=== PATIENT | female | born 1940 ===

== ENCOUNTER 2017-07-09 13:35 | Emergency (ER) | payer MEDICARE, MEDICAID ==
[2017-07-09 13:41] VITALS: BMI 25.8
[2017-07-09] MEDS ORDERED: Morphine 4 mg/ml ISec IVP STA ×2 (13:42→15:13)
--- NOTE | 2017-07-09 13:44 | ED PDOC ---
Arrival/HPI - General Time Seen by Provider: 07/09/17 13:36 Historian: Patient - History of Present Illness Narrative History of Present Illness (Text): 07/09/17 13:44 A 77 year old female, with no significant past medical history, presents to the emergency department complaining of severe right-side abdominal pain. Patient reports having eaten steak last night and believes it may be gas. Patient began also experiencing dry heaves. Patient's son called 911. Patient has no other complaints at this time. No PMD Past Medical History - Provider Review Nursing Documentation Reviewed: Yes Family/Social History - Physician Review Nursing Documentation Reviewed: Yes Family/Social History: No Known Family HX Allergies/Home Meds Allergies/Adverse Reactions: Allergies No Known Allergies Allergy (Verified 07/09/17 13:41) Home Medications: Home Meds Medication Instructions Recorded Confirmed Dicyclomine [Bentyl] 20 mg PO TID 07/09/17 07/09/17 Linaclotide [Linzess] 1 tab PO DAILY 07/09/17 07/09/17 Oxybutynin [Oxybutynin Chloride] 5 mg PO BID 07/09/17 07/09/17 Simethicone [Gas-X Extra Strength] 125 mg PO DAILY PRN 07/09/17 07/09/17 traMADol [Ultram] 50 mg BID 07/09/17 07/09/17 Review of Systems - Physician Review All systems were reviewed & negative as marked: Yes - Review of Systems Constitutional: absent: Fevers, Night Sweats Respiratory: absent: SOB Cardiovascular: absent: Chest Pain, Palpitations Gastrointestinal: Abdominal Pain (right-side). absent: Diarrhea, Nausea, Vomiting (dry heaves) Physical Exam Vital Signs Temp Pulse Resp BP Pulse Ox 07/09/17 19:40 73 18 119/61 100 07/09/17 19:07 98 F 75 19 126/71 97 07/09/17 15:07 98 F 85 19 99 - Systems Exam Head: Present: Atraumatic, Normocephalic Pupils: Present: PERRL Extroacular Muscles: Present: EOMI Conjunctiva: Present: Normal Mouth: Present: Moist Mucous Membranes Neck: Present: Normal Range of Motion Respiratory/Chest: Present: Clear to Auscultation, Good Air Exchange. No: Respiratory Distress, Accessory Muscle Use Cardiovascular: Present: Regular Rate and Rhythm, Normal S1, S2. No: Murmurs Abdomen: No: Tenderness, Distention, Peritoneal Signs Back: Present: Normal Inspection Upper Extremity: Present: Normal Inspection. No: Cyanosis, Edema Lower Extremity: Present: Normal Inspection. No: Edema Neurological: Present: GCS=15, CN II-XII Intact, Speech Normal Skin: Present: Warm, Dry, Normal Color. No: Rashes Psychiatric: Present: Alert, Oriented x 3, Normal Insight, Normal Concentration Medical Decision Making ED Course and Treatment: 07/09/17 13:46 Impression: 77 year old female with right-side abdominal pain. Physical exam is unremarkable. Plan: -- Abdominal Ultrasound -- Abd/Pelvis CT -- Chest X-ray -- Labs -- Venous Blood Gas -- Toradol -- Morphine -- Zofran -- Blood Culture -- Urine Culture -- Urinalysis -- Reassess and disposition Progress Notes: 07/09/2017 15:00 Abdominal Ultrasound IMPRESSION: Increased hepatic echotexture suggesting fatty infiltration however other infiltrative hepatocellular disease process not excluded. No evidence of cholelithiasis. Small cyst lower pole left kidney. Dictator: Reid Taylor DO EKG: Ordered, reviewed, and independently interpreted the EKG. Rate : 64 BPM Rhythm : NSR Interpretation : No ST-segment elevations or depressions, no T-wave inversions, normal intervals. Comparison : No previous EKG for comparison. 07/09/2017 15:45 Chest X-ray IMPRESSION: Minor bibasilar atelectasis. Dictator: Reid Taylor DO 07/09/2017 19:27 Abd/Pelvis CT FINDINGS: Lung bases: Dependent atelectatic change is identified at the lung bases posteriorly. Mediastinum: There is a small hiatal hernia. ABDOMEN: Liver: There is mild hypodense fatty infiltration of the liver. No mass visualized. Gallbladder and bile ducts: No calcified stones. No ductal dilation. Pancreas: Normal contour, without acute peripancreatic stranding. Spleen: No splenomegaly. Adrenals: No mass. Kidneys and ureters: Hypodense probably parapelvic cysts are identified within the left kidney. One of the larger cysts measures 1.8 x 1.7 x 1.7 cm. Calyceal dilatation cannot be stated. There is fullness of the right renal collecting system. Stomach and bowel: Colnic diverticula are identified, without acute inflammatory stranding of the adjacent mesentery. There is significant fecal material within the colon. PELVIS: Appendix: The appendix is not visualized. Bladder: No mass. Reproductive: Unremarkable as visualized. ABDOMEN and PELVIS: Intraperitoneal space: No free air. Bones/joints: Hypertrophic degenerative changes are noted within the spine. Vasculature: There is atherosclerotic calcification of the abdominal aorta. No abdominal aneurysm. Lymph nodes: No enlarged lymph nodes. IMPRESSION: 1. There is mild hypodense fatty infiltration of the liver. 2. Hypodense probable parapelvic cysts are identified within the left kidney. Calyceal dilatation cannot be stated. There is fullness of the right renal collecting system. 3. Diverticulosis. 4. Incidental/non-acute findings are described above. Dictator: El Champion MD - Lab Interpretations Lab Results: 07/09/17 14:00 07/09/17 14:00 Lab Results 07/09/17 19:15: pO2 38, VBG pH 7.33, VBG pCO2 53.0, VBG HCO3 27.9, VBG Total CO2 29.5 H, VBG O2 Sat (Calc) 73.5 H, VBG Base Excess 1.0, VBG Potassium 3.9, Sodium 137.0, Chloride 106.0, Glucose 85, Lactate 0.7, FiO2 21.0, Venous Blood Potassium 3.9 07/09/17 15:16: Urine Color Yellow, Urine Appearance Clear, Urine pH 7.0, Ur Specific [place] <= 1.005, Urine Protein Negative, Urine Glucose (UA) Negative, Urine Ketones Negative, Urine Blood Negative, Urine Nitrate Negative, Urine Bilirubin Negative, Urine Urobilinogen 0.2, Ur Leukocyte Esterase Negative 07/09/17 14:00: Sodium 139, Chloride 103, Potassium 3.8, Carbon Dioxide 22, Anion Gap 18, BUN 16, Creatinine 0.9, Est GFR ( Amer) > 60, Est GFR (Non- Af Amer) > 60, Random Glucose 87, Calcium 9.5, Total Bilirubin 0.7, AST 26, ALT 26, Alkaline Phosphatase 58, Lactate Dehydrogenase 536, Total Creatine Kinase 66 , Troponin I < 0.01, Total Protein 7.5, Albumin 4.5, Globulin 3.1, Albumin/ Globulin Ratio 1.5, Lipase 147 07/09/17 14:00: pO2 53, VBG pH 7.48 H, VBG pCO2 33.0 L, VBG HCO3 24.6, VBG Total CO2 25.6, VBG O2 Sat (Calc) 93.6 H, VBG Base Excess 1.6, VBG Potassium 3.7 , Sodium 137.0, Chloride 104.0, Glucose 91, Lactate 2.0, FiO2 21.0, Venous Blood Potassium 3.7 07/09/17 14:00: PT 11.2, INR 0.98 07/09/17 14:00: WBC 9.0, RBC 4.54, Hgb 13.7, Hct 39.9, MCV 87.9, MCH 30.2, MCHC 34.3, RDW 13.5, Plt Count 162, MPV 12.2 H, Gran % 62.4, Lymph % (Auto) 28.3, Posey % (Auto) 7.3 H, Eos % (Auto) 1.6, Baso % (Auto) 0.4, Gran # 5.59, Lymph # ( Auto) 2.5, Posey # (Auto) 0.7 H, Eos # (Auto) 0.1, Baso # (Auto) 0.04 I have reviewed the lab results: Yes - RAD Interpretation Radiology Orders: 07/09/17 13:42 CHEST PORTABLE [RAD] Stat ABDOMEN COMPLETE [US] Stat 07/09/17 15:13 ABD PELVIS PO & IV CONTRAST [CT] Stat - Medication Orders Current Medication Orders: Discontinued Medications Sodium Chloride (Sodium Chloride 0.9%) 1,000 mls @ 999 mls/hr IV .Q1H1M STA Stop: 07/09/17 14:45 Last Admin: 07/09/17 14:00 Dose: 999 mls/hr eMAR Start Stop Document 07/09/17 14:00 GMI (Rec: 07/09/17 14:00 GMI [facility] [id number]) Intravenous Solution Start Date 07/09/17 Start Time 14:00 End Date 07/09/17 End time 19:11 Total Infusion Time 311 Ketorolac Tromethamine (Toradol) 30 mg IVP STAT STA Stop: 07/09/17 13:43 Last Admin: 07/09/17 14:01 Dose: 30 mg MAR Pain Assessment Document 07/09/17 14:01 GMI (Rec: 07/09/17 14:02 I [id number][facility] Pain Reassessment Is this a pain reassessment? Yes Sleep Is patient sleeping during reassessment? No Presence of Pain Presence of Pain Yes Location Upper or Lower Upper Description Description Constant Intensity of Pain at present 10 Pain Behavior Moaning Crying Irritability Alleviating Factors Position Change IVP Administration Document 07/09/17 14:01 GMI (Rec: 07/09/17 14:02 [id number] Charges for Administration # of IVP Administrations 1 Re-Assess: [facility] Pain Assessment Document 07/09/17 15:01 GMI (Rec: 07/09/17 15:33 I [id number] Pain Reassessment Is this a pain reassessment? Yes Sleep Is patient sleeping during reassessment? No Presence of Pain Presence of Pain Yes Morphine Sulfate (Morphine) 4 mg IVP STAT STA Stop: 07/09/17 13:43 Last Admin: 07/09/17 14:02 Dose: 4 mg [facility] Pain Assessment Document 07/09/17 14:02 GMI (Rec: 07/09/17 14:[id number] Pain Reassessment Is this a pain reassessment? Yes Sleep Is patient sleeping during reassessment? No Presence of Pain Presence of Pain Yes Location Upper or Lower Upper Pain Location Body Site Abdomen Description Pain Behavior Moaning Irritability IVP Administration Document 07/09/17 14:02 GMI (Rec: 07/09/17 14:06 [id number] Charges for Administration # of IVP Administrations 1 Re-Assess: [facility] Pain Assessment Document 07/09/17 15:02 GMI (Rec: 07/09/17 15:33 I [id number]) Pain Reassessment Is this a pain reassessment? Yes Sleep Is patient sleeping during reassessment? No Presence of Pain Presence of Pain Yes Pain Scale Used Pain Scale Used Numeric Location Upper or Lower Upper Pain Location Body Site Abdomen Description Description Intermittent Intensity of Pain at present 5 Pain Behavior Moaning Irritability Alleviating Factors Distraction Morphine Sulfate (Morphine) 4 mg IVP STAT STA Stop: 07/09/17 15:14 Last Admin: 07/09/17 15:35 Dose: 4 mg [facility] Pain Assessment Document 07/09/17 15:35 GMI (Rec: 07/09/17 15:36 GMI [facility] [id number]) Pain Reassessment Is this a pain reassessment? Yes Sleep Is patient sleeping during reassessment? No Presence of Pain Presence of Pain Yes Description Intensity of Pain at present 5 Pain Behavior Moaning Alleviating Factors Position Change IVP Administration Document 07/09/17 15:35 GMI (Rec: 07/09/17 15:36 GMI [facility] [id number]) Charges for Administration # of IVP Administrations 1 Re-Assess: [facility] Pain Assessment Document 07/09/17 16:35 GMI (Rec: 07/09/17 19:04 GMI [facility] [id number]) Pain Reassessment Is this a pain reassessment? Yes Sleep Is patient sleeping during reassessment? No Presence of Pain Presence of Pain No Ondansetron HCl (Zofran Inj) 8 mg IVP STAT STA Stop: 07/09/17 13:43 Last Admin: 07/09/17 14:00 Dose: Ondansetron HCl (Zofran Inj) 4 mg IVP STAT STA Stop: 07/09/17 15:14 Last Admin: 07/09/17 15:35 Dose: 4 mg IVP Administration Document 07/09/17 15:35 GMI (Rec: 07/09/17 15:35 GMI [facility] [id number]) Charges for Administration # of IVP Administrations 1 - Scribe Statement The provider has reviewed the documentation as recorded by the Nunu Castro Provider Scribe Attestation: All medical record entries made by the Scribvannessa were at my direction and personally dictated by me. I have reviewed the chart and agree that the record accurately reflects my personal performance of the history, physical exam, medical decision making, and the department course for this patient. I have also personally directed, reviewed, and agree with the discharge instructions and disposition. Disposition/Present on Arrival - Present on Arrival Any Indicators Present on Arrival: No History of DVT/PE: No Urinary Catheter: No History of Decub. Ulcer: No - Disposition Have Diagnosis and Disposition been Completed?: No Diagnosis: Abdominal pain, Nausea & vomiting Disposition: HOME/ ROUTINE Disposition Time: 19:34 Patient Plan: Discharge Patient Problems: Current Active Problems Problem Status Onset Abdominal pain Acute Nausea & vomiting Acute Condition: GOOD Discharge Instructions (ExitCare): Acute Abdomen (Belly Pain), Adult (DC), Nausea and Vomiting, Adult (DC) Additional Instructions: Mrs Fung - Thanks for allowing us to care for you tonight. I could find nothing serious wrong that you were having so much pain. You may be right that it is gas. Follow up with your doctor on Monday. Return to us if worse. Zofran ODT is for nausea and/or vomiting..... Simethicone is for gas...... Best- Dr. Pranay MILIAN DIET ONLY til you see your doctor. Prescriptions: Ondansetron ODT [Zofran ODT] 8 mg PO TID #30 odt Simethicone 180 mg PO BID #20 sgl
[2017-07-09] MEDS ORDERED: Sodium Chloride 0.9% 1,000 ML IV STA (13:45)
[2017-07-09 14:14] LABS: BASO # 0.04 K/mm3 (0.0-2.0); BASO % 0.4 % (0.0-3.0); EOS # 0.1 (0.0-0.7); EOS % 1.6 % (1.5-5.0); GRAN # 5.59 (1.4-6.5); GRAN % 62.4 % (50.0-68.0); HEMOGLOBIN 13.7 g/dL (12.0-16.0); LYMPH # 2.5 (1.2-3.4); LYMPH % 28.3 % (22.0-35.0); MEAN CELL VOLUME 87.9 fl (80.0-105.0); MEAN CORPUSCULAR HEMOGLOBIN 30.2 pg (25.0-35.0); MEAN CORPUSCULAR HGB CONC 34.3 g/dl (31.0-37.0); MEAN PLATELET VOLUME 12.2 fl (7.0-11.0); MONO # 0.7 (0.1-0.6); MONO % 7.3 % (1.0-6.0); RBC 4.54 10^6/uL (3.5-6.1); RED CELL DISTRIBUTION WIDTH 13.5 % (11.5-14.5)
[2017-07-09 14:20] LABS: INR 0.98 (0.93-1.08); PROTHROMBIN TIME 11.2 SECONDS (9.4-12.5)
[2017-07-09 14:25] LABS: VENOUS BLOOD GAS BASE EXCESS 1.6 mmol/L (0.0-2.0); VENOUS BLOOD GAS PO2 53 mm/Hg (30-55); VENOUS BLOOD PH 7.48 (7.32-7.43)
[2017-07-09 14:35] LABS: ALB/GLOB RATIO 1.5 (1.1-1.8); ALBUMIN 4.5 g/dL (3.0-4.8); ALT/SGPT 26 U/L (7-56); AST/SGOT 26 U/L (14-36); BLOOD UREA NITROGEN 16 mg/dL (7-21); CALCIUM 9.5 mg/dL (8.4-10.5); GFR AFRICAN-AMERICAN > 60; GFR NON-AFRICAN AMERICAN > 60; LIPASE 147 U/L (23-300)
[2017-07-09 14:56] LABS: TROPONIN I < 0.01 ng/mL
--- NOTE | 2017-07-09 15:01 | US ---
HISTORY: Biliary Colic COMPARISON: None. TECHNIQUE: Sonographic evaluation of the abdomen. FINDINGS: LIVER: Measures 13.6 cm. Smooth contour though increased echotexture consistent with fatty infiltration however other infiltrative hepatocellular disease process not excluded. No obvious hepatic masses or collections seen on images presented. No gross intrahepatic biliary ductal dilatation. GALLBLADDER: Unremarkable. No gallstones. No pericholecystic fluid collections or sonographic Ulrich sign. COMMON BILE DUCT: Measures 3.9 mm. No stones. No dilatation. PANCREAS: Unremarkable as visualized. No mass. No ductal dilatation. RIGHT KIDNEY: Measures 9.1 x 3.6 x 4.7cm. Normal echogenicity. No calculus, mass, or hydronephrosis. LEFT KIDNEY: Measures 9.4 x 4.4 x 5.1cm. Normal echogenicity. No calculus, mass, or hydronephrosis. Small cyst lower pole left kidney measuring 1.8 cm in greatest dimension. SPLEEN: Normal in size and contour. No mass. AORTA: No aneurysmal dilatation. IVC: Unremarkable. OTHER FINDINGS: None. IMPRESSION: Increased hepatic echotexture suggesting fatty infiltration however other infiltrative hepatocellular disease process not excluded. No evidence of cholelithiasis. Small cyst lower pole left kidney.
[2017-07-09 15:08] VITALS: TEMP 98
[2017-07-09 15:36] LABS: URINE APPEARANCE CLEAR (CLEAR); URINE BILIRUBIN NEGATIVE (NEGATIVE); URINE BLOOD NEGATIVE (NEGATIVE); URINE COLOR YELLOW (YELLOW); URINE GLUCOSE (UA) NEGATIVE (NEGATIVE); URINE LEUKOCYTE ESTERASE NEGATIVE Leu/uL (NEGATIVE); URINE PROTEIN NEGATIVE mg/dL (<30 mg/dL); URINE UROBILINOGEN 0.2 E.U./dL (<1 E.U./dL)
[2017-07-09] MEDS ORDERED: Iohexol 350 MG/100 ML VIAL ONE (15:43)
[2017-07-09] MEDS ORDERED: Iohexol 240 (50 ml) ONE (15:43)
--- NOTE | 2017-07-09 15:46 | RAD ---
HISTORY: Epigastric and Abdominal Pain COMPARISON: Comparison made with prior study dated 07/09/2017 FINDINGS: LUNGS: Minor bibasilar atelectasis PLEURA: No significant pleural effusion identified, no pneumothorax apparent. CARDIOVASCULAR: Normal. OSSEOUS STRUCTURES: No significant abnormalities. VISUALIZED UPPER ABDOMEN: Normal. OTHER FINDINGS: None. IMPRESSION: Minor bibasilar atelectasis
--- NOTE | 2017-07-09 19:28 | CT ---
EXAM: CT Abdomen and Pelvis With Intravenous Contrast EXAM DATE/TIME: 07/09/2017 3:13 PM CLINICAL HISTORY: The patient age is 77 years old and is female; Pain; Abdominal pain; Generalized; Prior surgery; Surgery date: 6+ months; Surgery type: HX appendectomy; Additional info: Abdominal pain p eating steak Facility exam id and description: Ct abdpelc abd pelvis po iv contrast TECHNIQUE: Axial computed tomography images of the abdomen and pelvis with intravenous contrast. All CT scans at this facility use one or more dose reduction techniques, viz.: automated exposure control; ma/kV adjustment per patient size (including targeted exams where dose is matched to indication; i.e. head); or iterative reconstruction technique. Coronal and sagittal reformatted images were created and reviewed. CONTRAST: 100 mL of omnipaque 350 administered intravenously. COMPARISON: US - ABDOMEN COMPLETE 2017-07-09 14:32 FINDINGS: Lung bases: Dependent atelectatic change is identified at the lung bases posteriorly. Mediastinum: There is a small hiatal hernia. ABDOMEN: Liver: There is mild hypodense fatty infiltration of the liver. No mass visualized. Gallbladder and bile ducts: No calcified stones. No ductal dilation. Pancreas: Normal contour, without acute peripancreatic stranding. Spleen: No splenomegaly. Adrenals: No mass. Kidneys and ureters: Hypodense probable parapelvic cysts are identified within the left kidney. One of the larger cysts measures 1.8 x 1.7 x 1.7 cm. Calyceal dilatation cannot be stated. There is fullness of the right renal collecting system. Stomach and bowel: Colonic diverticula are identified, without acute inflammatory stranding of the adjacent mesentery. There is significant fecal material within the colon. PELVIS: Appendix: The appendix is not visualized. Bladder: No mass. Reproductive: Unremarkable as visualized. ABDOMEN and PELVIS: Intraperitoneal space: No free air. Bones/joints: Hypertrophic degenerative changes are noted within the spine. Vasculature: There is atherosclerotic calcification of the abdominal aorta. No abdominal aortic aneurysm. Lymph nodes: No enlarged lymph nodes. IMPRESSION: 1. There is mild hypodense fatty infiltration of the liver. 2. Hypodense probable parapelvic cysts are identified within the left kidney. Calyceal dilatation cannot be stated. There is fullness of the right renal collecting system. 3. Diverticulosis. 4. Incidental/non-acute findings are described above.
[2017-07-09 19:38] LABS: VENOUS BLOOD GAS PO2 38 mm/Hg (30-55); VENOUS BLOOD PH 7.33 (7.32-7.43)
[2017-07-09 19:40] VITALS: BP 119/61; PULSE 73; RESP 18; O2SAT 100
--- NOTE | 2017-07-10 09:45 | CARD ---
APPROVED REPORT EKG Measurement Heart [id number] <Conclusion> Normal sinus rhythm Normal ECG
== END 2017-07-09 20:12 | disposition home or self-care (01) ==
LOC: MERGE 13:35 → ED 13:35
DX: R11.2 Nausea with vomiting, unspecified (principal); R10.9 Unspecified abdominal pain
CPT/HCPCS: 71045; 74177; 76700; 80053; 81003; 82550; 82803; 83615; 83690; 84484; 85025; 85610; 87040; 87086; 93005; 96361; 96374; 96375; 96376; 99285; J1885; J2270; J2405; J7040; Q9966; Q9967